=== PATIENT | female | born 2000 | race Two or more races ===

== ENCOUNTER 2024-02-21 19:53 | Observation (INO) | payer MEDICAID, SELFPAY ==
[2024-02-21 19:53] VITALS: BMI 40.4
[2024-02-21 19:55] VITALS: TEMP 36.9
[2024-02-21 19:56] VITALS: BP 123/63; PULSE 93
--- NOTE | 2024-02-21 20:04 | XR_ITS ---
Examination: Complete OB ultrasound greater than 14 weeks Date and time of exam: 2000 2423 3 hours Indications: Labor evaluation with decreased movement today Findings: Viable intrauterine single fetus with single amniotic sac presentation cephalic spine posterior Cardiac motion 136 BPM Placenta anterior grade 1 Umbilical cord insertion seen Amniotic fluid index 14.5 cm Cervix 3.8 cm Right ovary 3.8 x 3.0 x 1.9 cm arterial flow Left ovary obscured by bowel gas 17 mm right ovarian follicular cyst. Composite estimated gestational age based on BPD, head circumference, abdominal circumference, femur length is 20 weeks 3 days Estimated weight 342 g. Survey of intracranial anatomy, spinal anatomy, abdominal anatomy, four-chamber heart performed with no abnormalities identified. Impression: Viable intrauterine gestation cephalic presentation.
== END 2024-02-21 22:07 | disposition home or self-care (01) ==
PROVIDERS: Admitting Provider Obstetrics & Gynecology; PCP Family Medicine; Visit Provider Obstetrics & Gynecology
DX: O36.8120 Decreased fetal movements, second trimester, not applicable or unspecified (principal); Z3A.21 21 weeks gestation of pregnancy
CPT/HCPCS: 59899; 76805

== ENCOUNTER 2024-05-13 17:44 | Observation (INO) | payer MEDICAID, SELFPAY ==
[2024-05-13] VITALS (24 sets, daily range): BP systolic 0–140; BP diastolic 0–71; PULSE 90–116; RESP 20–97; TEMP 36.6–36.7; O2SAT 92–100; BMI 41.5
[2024-05-13 19:35] LABS: Collection Type, Urine Clean Catch
[2024-05-13 19:44] LABS: Bilirubin,Urine Negative (Negative); Blood,Urine Negative (Negative); Clarity,Urine Clear (Clear/Hazy); Color,Urine Lt-Yellow (Lt Yel-Yel); Glucose, Urine Negative (Negative); Ketones,Urine Negative (Negative); Leukocyte Esterase,Urine Positive (Negative); Nitrite,Urine Negative (Negative); PH,Urine 6.5 (5.0-7.0); Protein,Urine Negative (Neg - Trace); RBC,Urine 6 /hpf (0-3); Specific Gravity,Urine 1.024 (1.001-1.035); Squamous Epithelial Cell,Urine 2 /hpf (0-5); Urobilinogen,Urine Negative mg/dL (0.0-1.0); WBC,Urine 3 /hpf (0-5)
[2024-05-13] MEDS: NITROFURANTOIN MACRO 100 MG CAPSULE PO (20:27)
== END 2024-05-13 20:35 | disposition home or self-care (01) ==
PROVIDERS: Admitting Provider Obstetrics & Gynecology; Visit Provider Obstetrics & Gynecology
DX: O26.893 Other specified pregnancy related conditions, third trimester (principal); Z3A.33 33 weeks gestation of pregnancy; R10.9 Unspecified abdominal pain
CPT/HCPCS: 59025; 81001; 87086; G0378; A9270

== ENCOUNTER 2024-06-20 04:03 | Inpatient (IN) | payer MEDICAID, SELFPAY ==
[2024-06-20] VITALS (80 sets, daily range): BP systolic 0–144; BP diastolic 0–102; PULSE 65–115; RESP 16–98; TEMP 36.5–36.9; O2SAT 92–100; BMI 43.3
[2024-06-20] MEDS: RINGERS LACTATED 1000 ML 1,000 ML 100 ML IV ×2 (04:50→07:53)
[2024-06-20 05:25] LABS: Basophils % (Auto) 0 % (0-2.5); Eosinophils % (Auto) 0 % (0-10); Immature Granulocytes % (Auto) 1 % (0-0); Immature Granulocytes Auto 0.11 Thou/mm3 (0.00-0.00); Lymphocytes # (Auto) 2.3 Thou/mm3 (1.0-4.8); Lymphocytes % (Auto) 15 % (10-50); Mean Corpuscular HGB Conc 31.6 g/dl (31.0-37.0); Mean Corpuscular Hemoglobin 24.7 pg (25.0-35.0); Mean Corpuscular Volume 78 fL (80-100); Monocytes # (Auto) 0.6 Thou/mm3 (0.0-0.8); Monocytes % (Auto) 4 % (0-12); Neutrophils # (Auto) 12.8 Thou/mm3 (1.8-7.7); Neutrophils % (Auto) 81 % (37-80); Nucleated Red Blood Cell % 0 /100 WBC (0); Platelet Count 301 Thou/mm3 (140-440); RDW Standard Deviation 48.7 fL (36.4-46.3); Red Blood Count 4.86 Miln/mm3 (4.00-5.20); White Blood Count 15.9 Thou/mm3 (3.6-11.0)
[2024-06-20 06:12] LABS: Syphilis Nonreactive (Nonreactive)
[2024-06-20] MEDS: fentaNYL CIT INJ 50 mCg/ML AMP 2ML 100 MCG IV (06:15)
--- NOTE | 2024-06-20 07:01 | PD.LDHP ---
Documentation for date of: 06/20/24 OB Labor/Induct. HPI History of Present Illness Chief complaint: Labor : 3 Term pregnancies: 1 pregnancies: 0 Living children: 1 History of Abortions: Spontaneous and Elective: 1 History of Vaginal deliveries: 1 History of sections: No History of : No Date of last menstrual period: 09/23/23 SOBIA: 06/29/24 Gestational Age (weeks): 38 Gestational Age (days): 5 Gestational age based on last menstrual period: 38 History of present illness: Patient is a 24-year-old -0-1-1 who presented in active labor in the middle of the night 4 to 5 cm. All care is [facility] She denied loss of fluids heavy bleeding. She reported good movement. History of Present Dating criteria: LMP confirmed by 1st trimester US Adequate Care: Yes Ultrasounds: normal mid trimester US Obstetrical complications: none Medical complications: none Labs Maternal Blood Type: O Pos Labs: Positive: Rubella Titre and Negative: RPR, Hepatitis B, HIV, Chlamydia, Gonorrhea and Group Beta Strep Past Medical History Surgical History SURGICAL: Negative Section Meds Home Medications and Allergies Home Medications ?Medication ?Instructions ?Recorded ?Confirmed ?Type folic acid 1 mg tablet 1 mg PO DAILY 02/21/24 06/20/24 History vits no.130-ferrous fum 1 tab PO DAILY 02/21/24 06/20/24 History 27 mg iron-folic acid 800 mcg tablet ( Vitamin) Allergies Allergy/AdvReac Type Severity Reaction Status Date / Time No Known Allergies Allergy Verified 06/20/24 04:17 OB Exam Physical Exam Vital signs: Temp Pulse Resp BP Pulse Ox 98.4 F 80 18 126/71 97 06/20/24 05:00 06/20/24 06:41 06/20/24 05:00 06/20/24 06:41 06/20/24 06:57 Routine Abdominal Exam Abdominal: Present soft Comments: Fundus firm Detailed Labor and Delivery Exam Effacement (%): 80 Cervix position: mid station: -2 Consistency: medium Presentation: Vertex monitor accelerations: 15x15 monitor decelerations: None skilled nursing variability: Moderate (11-25) Contraction frequency (min): Every 5 minutes Tachysystole: No Contraction intensity: Moderate OB Results Labs 04/14/25 04:45 Labs: Short CBC 06/20/24 Range/Units 04:45 WBC 15.9 H (3.6-11.0) Thou/mm3 Hgb 12.0 (12.0-16.0) g/dL Hct 38.0 (36.0-46.0) % Plt Count 301 (140-440) Thou/mm3 OB Assessment & Plan Assessment and Plan (1) Term : Status: Acute (2) Active labor at term: Status: Acute Assessment and plan: For pain medications if needed. Possible AROM and/or augmentation if patient does not progress on her labor curve appropriately.
[2024-06-20] MEDS: OXYTOCIN in NS 20 units 20 UNIT/1,000 ML BAG 125 UNIT IV (09:19)
[2024-06-20] MEDS: BENZO/LANO/ALOE (Dermoplast) 60 GM CAN 1 SPRAY TOP (09:24)
--- NOTE | 2024-06-20 09:50 | ESDS_ITS ---
DS: Providers Provider Date of admission: 06/20/24 04:52 Primary care physician: Physician No Primary/Family Admitting Provider: Portia Lucas MD ([facility]) Attending Provider on Admission: Laci Gray MD Attending Provider on DC: Laci Gray MD Discharging Provider: Laci Gray MD DS: Diagnosis Problem List Completed Was Problem List Reviewed/Reconciled?: Yes Summary/Hosp Course Brief History: Patient is a 24-year-old -0-1-1 who presented in active labor in the middle of the night 4 to 5 cm. All care is up-to-date on the chart with [facility]. She denied loss of fluids heavy bleeding. She reported good movement. Peripartum Data Delivery Method: Normal Vaginal Delivery Episiotomy Description: None Laceration Description: see Delivery Summary Time Spent with Patient Time attestation: Total time spent providing and/or coordinating discharge services: Exam Vital Signs Temp Pulse Resp BP Pulse Ox 97.7 F 76 18 116/68 99 06/20/24 07:00 06/20/24 09:50 06/20/24 07:00 06/20/24 09:50 06/20/24 09:16 Discharge Plan Plan Patient Disposition: HOME (Self Care) Patient condition on transfer: Stable Prescriptions/Referrals Prescriptions/Med Rec: New ibuprofen 600 mg tablet 600 mg PO Q6H PRN (Reason: pain) Qty: 30 0RF Continued Vitamin 27 mg iron- 800 mcg tablet 1 tab PO DAILY Patient Comments: TAKE ONE TABLET BY MOUTH EVERY DAY VITAMIN Discontinued folic acid 1 mg tablet 1 mg PO DAILY Patient Comments: TAKE ONE TABLET BY MOUTH EVERY DAY VITAMIN Referrals: No Primary/Family,Physician [Primary Care Provider] - Patient/Caregiver Discharge Instructions Discharge Activity: activity as tolerated Other Discharge Activity Instructions:: Follow up office of primary OB provider in 6 weeks Print Language: Japanese Stand Alone Forms: Migdalia Award Info., Patient Portal Info Letter Planned Discharge Date 06/21/24
--- NOTE | 2024-06-20 09:51 | PD.LDDELS ---
Data (Arellano) Data Hx Section: No : 3 Para: 1 Term: 1 : 0 : 1 Delivery Data (Arellano) Labor Data ROM Date: 06/20/24 ROM Time: 09:05 Rupture Type: SROM Amniotic Fluid: Clear Delivery Data EDC: 06/29/24 EDC calculated by:: LMP/early US confirmation Labor Onset Stage 1 Date: 06/20/24 Labor Onset Stage 1 Time: 01:00 Labor Onset Stage 2 Date: 06/20/24 Labor Onset Stage 2 Time: 09:11 Delivery Date: 06/19/24 Delivery Time: 09:14 Gestational age (weeks): 38 Gestational age (days): 5 Placenta Delivery Date: 06/19/24 Placenta Delivery Time: 09:20 Delivered by: Laci Gray Delivery nurse: Fela Marin Other staff at delivery: Nursery Nurse Other staff at delivery: 2nd Nurse Other staff at delivery: Tayler Henry Other staff at delivery: Zeynep Bull Delivery Method Delivery: Vaginal Delivery Type: Spontaneous Presentation: Vertex Position: OA Anesthesia Type Primary Anesthesia: Epidural Placenta Placenta Delivery: Spontaneous Placenta Cultures Obtained: No Placenta Sent for Examination: No Cord Sample: Cord Blood Obtained Lacerations #1: Perineal: 2nd degree Perineal repair Sutures used for repair: 3.0 Chromic EBL Estimated blood loss (ml): 250 Umbilical Cord Nuchal Cord: x1 Additional Procedures None Complications Complications: None Data (Arellano) Data Gender: Female Infant Weight Grams: 2915 1 Minute Total: 8 5 Minute Total: 9
[2024-06-20 15:52] LABS: Basophils % (Auto) 0 % (0-2.5); Eosinophils % (Auto) 0 % (0-10); Hematocrit 35.6 % (36.0-46.0); Hemoglobin 11.4 g/dL (12.0-16.0); Immature Granulocytes % (Auto) 1 % (0-0); Lymphocytes # (Auto) 2.5 Thou/mm3 (1.0-4.8); Lymphocytes % (Auto) 15 % (10-50); Mean Corpuscular Hemoglobin 24.4 pg (25.0-35.0); Mean Corpuscular Volume 76 fL (80-100); Monocytes # (Auto) 0.8 Thou/mm3 (0.0-0.8); Monocytes % (Auto) 5 % (0-12); Neutrophils # (Auto) 13.6 Thou/mm3 (1.8-7.7); Neutrophils % (Auto) 80 % (37-80); Nucleated Red Blood Cell % 0 /100 WBC (0); Platelet Count 263 Thou/mm3 (140-440); RDW Standard Deviation 47.8 fL (36.4-46.3); Red Blood Count 4.68 Miln/mm3 (4.00-5.20)
[2024-06-21 03:45] VITALS: BP 111/76; PULSE 73; RESP 16; TEMP 36.5; O2SAT 98
[2024-06-21 08:00] VITALS: BP 114/77; PULSE 76; RESP 14; TEMP 36.4; O2SAT 98
--- NOTE | 2024-06-21 08:01 | PD.LDDS ---
DS: Providers Provider Date of admission: 06/20/24 04:52 Primary care physician: Physician No Primary/Family Admitting Provider: Portia Lucas MD ([facility]) Attending Provider on Admission: Laci Gray MD Consults: 06/20/24 10:09 Referral Routine Comment: Attending Provider on DC: Nadine Alexander CNM Discharging Provider: Nadine Alexander CNM Anticipated date of discharge: 06/21/24 DS: Diagnosis Discharge Diagnosis (1) care following vaginal delivery: Status: Acute (2) Encounter for care of lactating mother: Status: Acute (3) Normal spontaneous vaginal delivery: Status: Acute Problem List Completed Was Problem List Reviewed/Reconciled?: Yes Summary/Hosp Course Brief History: Patient is a 24-year-old -0-1-1 who presented in active labor in the middle of the night 4 to 5 cm. All care is up-to-date on the [facility] with [facility]. She denied loss of fluids heavy bleeding. She reported good movement. Peripartum Data Delivery Method: Normal Vaginal Delivery Episiotomy Description: None Laceration Description: yes and see Delivery Summary [place] 1: Gender: Female Status at Discharge Cognitive/behavioral status at discharge: alert and oriented x 3 Functional status at discharge: independent ambulation Overall status at discharge: patient is progressing back to baseline Time Spent with Patient Time attestation: Total time spent providing and/or coordinating discharge services: Time spent: Greater than 30 minutes Exam Vital Signs Temp Pulse Resp BP Pulse Ox O2 Del Method 97.7 F 73 16 111/76 98 Room Air 06/21/24 03:45 06/21/24 03:45 06/21/24 03:45 06/21/24 03:45 06/21/24 03:45 06/21/24 03:45 Constitutional Constitutional: no acute distress Routine HEENT Exam Head: Present normocephalic and atraumatic Eye: Present EOMI, PERRL and normal accommodation ENT: Present mucous membranes moist Routine Neck Exam Neck: Present full ROM Routine Respiratory Exam Respiratory: Present chest non-tender, lungs clear, normal breath sounds and no resp distress Routine Cardiovascular Exam Cardiovascular: Present RRR Routine Abdominal Exam Abdominal: Present soft and normoactive bowel sounds Comments: Uterus nontender fundus firm Routine Exam Patient deferred: external exam Routine Extremities Exam Extremities: Present full ROM, pulses intact and normal capillary refill; Absent calf tenderness or tenderness Routine Back/Spine/Pelvis Exam Back/Spine: Present full ROM Routine Skin Exam Skin: Present intact, dry and warm Routine Neurological Exam Neurological: Present alert, oriented X3 and CN II-XII intact Routine Psychiatric Exam Psychiatric: Present normal affect and normal thought process Discharge Plan Plan Patient Disposition: HOME (Self Care) Patient condition on transfer: Stable Prescriptions/Referrals Prescriptions/Med Rec: New ibuprofen 600 mg tablet 600 mg PO Q6H PRN (Reason: pain) Qty: 30 0RF docusate sodium [Colace] 100 mg capsule 100 mg PO BID Qty: 60 0RF lanolin 50 % ointment 1 applic topical TID PRN (Reason: skin irritation) Qty: 15 0RF Continued Vitamin 27 mg iron- 800 mcg tablet 1 tab PO DAILY Patient Comments: TAKE ONE TABLET BY MOUTH EVERY DAY VITAMIN Discontinued folic acid 1 mg tablet 1 mg PO DAILY Patient Comments: TAKE ONE TABLET BY MOUTH EVERY DAY VITAMIN Referrals: No Primary/Family,Physician [Primary Care Provider] - Patient/Caregiver Discharge Instructions Discharge Activity: activity as tolerated Other Discharge Activity Instructions:: Follow-up with Nadine Alexander CNM in 3 weeks Print Language: Indian Stand Alone Forms: Migdalia Award Info., Patient Portal Info Letter Discharge Order Discharge Orders: Discharge (Routine); Ordered 06/21/24 Ordered By: Nadine Alexander Planned Discharge Date 06/21/24
--- NOTE | 2024-06-21 13:16 | CHAP ---
9:30 AM Visited by spiritual care volunteer Provided Baby [place] and prayer for Patient.
== END 2024-06-21 14:50 | disposition home or self-care (01) | DRG 560 ==
LOC: S4SX 09:47 → S4NX 11:32
PROVIDERS: Admitting Provider Obstetrics & Gynecology; Visit Provider Specialist
DX: O69.81X0 Labor and delivery complicated by cord around neck, without compression, not applicable or unspecified (principal); O70.1 Second degree perineal laceration during delivery; Z37.0 Single live birth; Z3A.38 38 weeks gestation of pregnancy
CPT/HCPCS: 36415; 59409; 85025; 86780; 86850; 86900; 86901; 94762; J2590; J3010; J7120; A9270